=== PATIENT | female | born 1955 | race Caucasian/White ===

== ENCOUNTER 2020-02-17 18:18 | Emergency (ER) | payer OTHER ==
[~2020-02-17] VITALS: Ht 177.8 cm; Wt 79.4 kg
--- NOTE | 2020-02-17 18:20 | NUR ---
Placed in room 05 . Placed on stone fabricator, blood pressure machine and pulse oximeter. To gown for exam. Side rails up.
[2020-02-17 18:24] VITALS: BP_SYST 153
--- NOTE | 2020-02-17 18:30 | NUR ---
PT AAO BIB AMBULANCE FOR [facility] WHILE AT A [facility]. ON SCENE PT HAD LOW BP AND WAS GIVEN NS BOLUS IN ROUTE. V/S ARE CURRENTLY STABLE AND PT IS ASYMPTOMATIC.
--- NOTE | 2020-02-17 18:40 | NUR ---
ER Dr. RENTERIA at bedside examining patient.
--- NOTE | 2020-02-17 19:15 | NUR ---
CARE ASSUMED BY CARLOS SALAZAR. PT IS RESTING QUIETLY IN NO DISTRESS.
--- NOTE | 2020-02-17 19:46 | NUR ---
Spoke with patient, Patient states " my prescription Methadone was in the embulance, they didn't give it back to me, I had withdraw symptoms from Methadone and I could not sleep over 2-3 days, I went to [facility] to refill medications, recently my mother and brother was diagnosed Covid-19, I think I was stress a lot lately."
[2020-02-17] MEDS ORDERED: NACL 0.9% 1,000 ML IV ONE (20:00)
--- NOTE | 2020-02-17 20:08 | NUR ---
ER Dr. Berkowitz at bedside examining patient.
--- NOTE | 2020-02-17 20:16 | NUR ---
Patient refused blood drawn and CROW Berkowitz notified.
--- NOTE | 2020-02-17 21:20 | NUR ---
Will spoke with patient, informed patient about prescription, EMT denied no prescription inside EMS.
--- NOTE | 2020-02-17 21:48 | NUR ---
Provided orange juice per request.
[2020-02-17 22:35] VITALS: BP_SYST 111
--- NOTE | 2020-02-17 22:35 | NUR ---
Patient given written and verbal discharge instructions and verbalizes understanding. ER MD discussed with patient the results and treatment provided. Patient in stable condition. ID arm band removed. IV catheter removed intact and dressing applied, no active bleeding. NO Rx given. Patient educated on pain management and to follow up with PMD. Pain Scale 0/10. Opportunity for questions provided and answered.
== END 2020-02-17 22:35 | disposition home or self-care (01) ==
LOC: SED 18:18
DX: R55 Syncope and collapse (principal); I10 Essential (primary) hypertension; E11.9 Type 2 diabetes mellitus without complications; Z90.710 Acquired absence of both cervix and uterus; Z88.8 Allergy status to other drugs, medicaments and biological substances
CPT/HCPCS: 93005; 99283

== ENCOUNTER 2023-10-06 12:11 | Inpatient (IN) | payer OTHER ==
[~2023-10-06] VITALS: Ht 177.8 cm; Wt 97.1 kg
[2023-10-06 12:15] VITALS: BP_SYST 92; PULSE 96; RESP 18; TEMP 98.3; O2SAT 98
[2023-10-06] MEDS: NACL 0.9% 1,000 ML IV ONE (13:05)
[2023-10-06 13:39] LABS: BASOPHILS % (AUTO) 0.6 % (0.0-2.0); EOSINOPHILS % (AUTO) 0.6 % (0.0-4.0); LYMPHOCYTES # (AUTO) 0.8 K/uL (1.0-5.5); LYMPHOCYTES % (AUTO) 12.3 % (20.5-51.5); MEAN CORPUSCULAR HEMOGLOBIN 24 pg (27-31); MEAN CORPUSCULAR HGB CONC 31 % (32-36); MEAN CORPUSCULAR VOLUME 78 fL (79.0-98.0); MONOCYTES # (AUTO) 0.2 K/uL (0.0-1.0); MONOCYTES % (AUTO) 3.8 % (1.7-9.3); NEUTROPHILS # (AUTO) 5.3 K/uL (1.8-7.7); NEUTROPHILS % (AUTO) 82.7 % (40.0-70.0); PLATELET COUNT (AUTO) 189 K/uL (130-430); RED BLOOD CELL COUNT(AUTO) 2.26 MIL/uL (4.2-6.2); RED CELL DISTRIBUTION WIDTH 20.5 % (9.0-15.0); WHITE BLOOD COUNT (AUTO) 6.4 K/uL (4.8-10.8)
[2023-10-06 13:50] LABS: HEMATOCRIT 17.5 % (36-48); HEMOGLOBIN 5.4 g/dL (12.0-16.0)
[2023-10-06 13:55] LABS: PROTHROMBIN TIME 67.9 SECS (9.5-12.5)
[2023-10-06 13:56] LABS: INR 7.2 (0.8-1.2)
[2023-10-06 14:07] LABS: ALANINE AMINOTRANSFERASE 38 U/L (12-78); ALBUMIN 2.4 g/dL (3.4-4.8); ANION GAP 12 (5-15); ASPARTATE AMINOTRANSFERASE 19 U/L (10-37); BILIRUBIN,DIRECT 0.1 mg/dL (0.0-0.3); CALCIUM 8.1 mg/dL (8.4-11.0); CARBON DIOXIDE 22 mmol/L (23-29); CHLORIDE 105 mmol/L (98-107); CREATININE 1.94 mg/dL (0.55-1.30); GFR AFRICAN AMERICAN 33 mL/min (>90); GLUCOSE 364 mg/dL (74-106); POTASSIUM 4.4 mmol/L (3.5-5.1); SODIUM SERUM 139 mmol/L (136-145); TOTAL BILIRUBIN 0.4 mg/dL (0.0-1.0); TOTAL PROTEIN, SERUM 5.9 g/dL (6.4-8.3); UREA NITROGEN, BLOOD 72 mg/dL (8-21)
[2023-10-06 14:14] LABS: HYPOCHROMASIA 1+
[2023-10-06 14:15] LABS: ANISOCYTOSIS 1+; OVALOCYTES FEW; TARGET CELLS FEW
[2023-10-06 14:20] LABS: GFR NON AFRICAN-AMERICAN 27 mL/min (>90)
[2023-10-06] MEDS: PHYTONADIONE 10 MG/ML AMP IV ONE (15:08)
[2023-10-06] MEDS ORDERED: HUM PROTHROMBIN CPLX(PCC)-LANS 500 UNIT VIAL IV ONE ×3 (16:55→17:10)
[2023-10-06] MEDS ORDERED: DEXTROSE 50% JECT 50 ML DISP.SYRIN IVP PRN (17:00)
[2023-10-06] MEDS ORDERED: ONDANSETRON HCL 4 MG/2 ML VIAL IVP PRN (17:15)
[2023-10-06] MEDS: WATER FOR INJECTION STERILE IV ONE (17:50)
[2023-10-06] MEDS: HUM PROTHROMBIN CPLX LANS IV ONE (17:50)
[2023-10-06] MEDS: INSULIN REGULAR, HUMAN 100 UNITS/ML, 3 ML VIAL (humuLIN R) SUBCUT PRN (18:20)
[2023-10-06] MEDS ORDERED: INSULIN REGULAR, HUMAN 10 UNITS/0.1 ML, 3 ML VIAL ONE (18:20)
[2023-10-06 19:18] LABS: BILIRUBIN,URINE NEGATIVE (NEGATIVE); BLOOD, URINE NEGATIVE (NEGATIVE); CLARITY/URINE CLEAR (CLEAR); COLOR,URINE YELLOW (YELLOW); GLUCOSE,URINE 2+ (NEGATIVE); KETONES,URINE NEGATIVE (NEGATIVE); LEUKOCYTE ESTERASE ,URINE NEGATIVE (NEGATIVE); NITRITE, URINE NEGATIVE (NEGATIVE); PH,URINE 5.5 (5.0-8.0); PROTEIN URINE NEGATIVE (NEGATIVE); UROBILINOGEN,URINE 0.2 (0.2-1.0)
[2023-10-06] MEDS ORDERED: PANTOPRAZOLE SODIUM 40 MG/VIAL (PROTONIX) ONE (19:24)
[2023-10-06 19:30] LABS: BACTERIA,URINE FEW /HPF (None Seen); RBC,URINE 0-3 /HPF (0-3); WBC,URINE 0-3 /HPF (0-3)
[2023-10-06] MEDS ORDERED: HUM100IN SUBCUT (19:34)
[2023-10-06] MEDS ORDERED: WARF-52 PO (19:34)
[2023-10-06] MEDS ORDERED: VENL75CA56 PO (19:34)
[2023-10-06] MEDS ORDERED: CLOP75TA32 PO (19:34)
[2023-10-06] MEDS ORDERED: GABA-529 PO (19:34)
[2023-10-06] MEDS ORDERED: ATOR40TA68 PO (19:34)
[2023-10-06] MEDS ORDERED: NORT75CA PO (19:34)
[2023-10-06] MEDS ORDERED: BISO5TAB15 PO (19:34)
[2023-10-06] MEDS: PANTOPRAZOLE SODIUM 40 MG/VIAL (PROTONIX) IVP ONE (19:47)
[2023-10-06] MEDS: NACL 0.9% 1,000 ML IV SCH (20:04)
[2023-10-06] MEDS ORDERED: PANTOPRAZOLE SODIUM 40 MG/VIAL (PROTONIX) IVP SCH (21:00)
[2023-10-06 21:15] LABS: BASOPHILS % (AUTO) 0.6 % (0.0-2.0); EOSINOPHILS % (AUTO) 0.8 % (0.0-4.0); HEMOGLOBIN 7.2 g/dL (12.0-16.0); LYMPHOCYTES # (AUTO) 0.9 K/uL (1.0-5.5); LYMPHOCYTES % (AUTO) 19.4 % (20.5-51.5); MEAN CORPUSCULAR HEMOGLOBIN 27 pg (27-31); MEAN CORPUSCULAR HGB CONC 33 % (32-36); MEAN CORPUSCULAR VOLUME 82 fL (79.0-98.0); MONOCYTES # (AUTO) 0.3 K/uL (0.0-1.0); MONOCYTES % (AUTO) 5.6 % (1.7-9.3); NEUTROPHILS # (AUTO) 3.6 K/uL (1.8-7.7); NEUTROPHILS % (AUTO) 73.6 % (40.0-70.0); PLATELET COUNT (AUTO) 138 K/uL (130-430); RED BLOOD CELL COUNT(AUTO) 2.69 MIL/uL (4.2-6.2); RED CELL DISTRIBUTION WIDTH 22.4 % (9.0-15.0); WHITE BLOOD COUNT (AUTO) 4.8 K/uL (4.8-10.8)
[2023-10-06 21:30] VITALS: BP_SYST 113; BP_SYST 150; PULSE 73; PULSE 84; RESP 11; RESP 16; TEMP 96.6; TEMP 98.6; O2SAT 96; O2SAT 99
[2023-10-06 21:31] LABS: INR 1.1 (0.8-1.2)
[2023-10-06 21:45] LABS: HEMATOCRIT 21.9 % (36-48)
[2023-10-06 21:49] LABS: PROTHROMBIN TIME 11.8 SECS (9.5-12.5)
[2023-10-06 22:00] VITALS: BP_SYST 113; PULSE 81; RESP 11; O2SAT 96
[2023-10-06 23:00] VITALS: BP_SYST 129; PULSE 79; RESP 9; O2SAT 100
[2023-10-07] VITALS (19 sets, daily range): BP systolic 132–163; PULSE 76–98; RESP 8–27; TEMP 98–98.6; O2SAT 34–99
[2023-10-07] MEDS ORDERED: METH-797 PO (02:05)
[2023-10-07 05:31] LABS: BASOPHILS % (AUTO) 0.6 % (0.0-2.0); EOSINOPHILS # (AUTO) 0.1 K/uL (0.0-0.4); EOSINOPHILS % (AUTO) 2.1 % (0.0-4.0); HEMATOCRIT 22.3 % (36-48); HEMOGLOBIN 7.4 g/dL (12.0-16.0); INR 1.1 (0.8-1.2); LYMPHOCYTES # (AUTO) 1.1 K/uL (1.0-5.5); MEAN CORPUSCULAR HEMOGLOBIN 27 pg (27-31); MEAN CORPUSCULAR HGB CONC 33 % (32-36); MEAN CORPUSCULAR VOLUME 81 fL (79.0-98.0); MONOCYTES # (AUTO) 0.3 K/uL (0.0-1.0); MONOCYTES % (AUTO) 7.4 % (1.7-9.3); NEUTROPHILS # (AUTO) 2.5 K/uL (1.8-7.7); NEUTROPHILS % (AUTO) 61.9 % (40.0-70.0); PLATELET COUNT (AUTO) 152 K/uL (130-430); PROTHROMBIN TIME 11.1 SECS (9.5-12.5); RED BLOOD CELL COUNT(AUTO) 2.76 MIL/uL (4.2-6.2); RED CELL DISTRIBUTION WIDTH 22.5 % (9.0-15.0); WHITE BLOOD COUNT (AUTO) 4.1 K/uL (4.8-10.8)
[2023-10-07 05:41] LABS: ALBUMIN 2.5 g/dL (3.4-4.8); CALCIUM 8.2 mg/dL (8.4-11.0); CREATININE 1.6 mg/dL (0.55-1.30); FREE T4 (FREE THYROXINE) 1.1 ng/dL (0.6-1.6); POTASSIUM 4.1 mmol/L (3.5-5.1); THYROID STIMULATING HORMONE 2.7 uIu/mL (0.34-4.82); TOTAL BILIRUBIN 0.8 mg/dL (0.0-1.0)
[2023-10-07] MEDS: PANTOPRAZOLE SODIUM 40 MG/VIAL (PROTONIX) IVP SCH (08:32)
[2023-10-07] MEDS: VENLAFAXINE HCL 50 MG TABLET PO SCH (08:32)
[2023-10-07] MEDS: ATORVASTATIN 20 MG TABLET PO SCH (08:33)
[2023-10-07] MEDS: ACETAMINOPHEN 325 MG TABLET PO PRN (09:52)
[2023-10-07 10:43] LABS: PROTHROMBIN TIME 10.8 SECS (9.5-12.5)
[2023-10-07] MEDS: METHADONE HCL 10 MG TABLET PO ONE (15:27)
[2023-10-07] MEDS ORDERED: METHADONE HCL 10 MG TABLET PO SCH (21:00)
== END 2023-10-07 17:40 | disposition short-term general hospital (02) | DRG 811 ==
LOC: SED 12:11 → SIC 16:22
PROVIDERS: ADMIT Internal Medicine; ATTEND Internal Medicine
PROC: 30233N1 Transfusion of Nonautologous Red Blood Cells into Peripheral Vein, Percutaneous Approach (ICD-10-PCS; principal; 2023-10-06)
DX: D62 Acute posthemorrhagic anemia (principal); N17.0 Acute kidney failure with tubular necrosis; I48.20 Chronic atrial fibrillation, unspecified; E78.5 Hyperlipidemia, unspecified; I25.10 Atherosclerotic heart disease of native coronary artery without angina pectoris; E11.22 Type 2 diabetes mellitus with diabetic chronic kidney disease; T45.515A Adverse effect of anticoagulants, initial encounter; N18.9 Chronic kidney disease, unspecified; Z79.899 Other long term (current) drug therapy; Y92.89 Other specified places as the place of occurrence of the external cause; Z79.01 Long term (current) use of anticoagulants
CPT/HCPCS: 36415; 71045; 80048; 80053; 80061; 80076; 81000; 81001; 81015; 82550; 82948; 83735; 83880; 84439; 84443; 84484; 85025; 85610; 85730; 86886; 86900; 86901; 86920; 87081; 93005; 99291; C9113; J1815; J3430; P9021